=== PATIENT | female | born 1945 | race Caucasian/White ===

== ENCOUNTER → 2017-09-26 | Outpatient (REF) | payer MEDICARE, OTHER ==
[~2017-09-26] MED LIST: ALP1 PO; AMLO-109 PO; AUG875 PO; DEN60I SUBQ; DILT240C76 PO; ESCI5TAB10 PO; LEV100 PO; LEVO50 PO; MEC25 PO; MELO-149 PO; ONDA4TAB PO; RIS35 PO; VANC125C10 PO; [UNRECOGNIZED DRUG - CODE] PO; bp meds
== END ==
LOC: ZZSENDIN 18:12
PROVIDERS: ATTEND Family Medicine
DX: M79.1 Myalgia (principal)
CPT/HCPCS: 82550

== ENCOUNTER → 2017-10-03 | Outpatient (REF) | payer MEDICARE, OTHER | LOC: ZZSENDIN 17:08 | PROVIDERS: ATTEND Family Medicine | DX: M79.671 Pain in right foot (principal) | CPT/HCPCS: 84550 ==

== ENCOUNTER → 2017-10-15 | Outpatient (CLI) | payer MEDICARE, OTHER ==
[2017-10-15 11:29] LABS: PLATELET COUNT, AUTOMATED 309 K/uL (150-450)
--- NOTE | 2017-10-15 12:17 | RADIOLOGY IMAGING REPORT ---
FACILITY: [facility] PATIENT NAME: Sara Thomas : 1945 MR: [id number] V: [id number] EXAM DATE: ORDERING PHYSICIAN: MORGAN CHRISTINE TECHNOLOGIST: [place] [facility] [place]: Sara [place] : 1945 Visit/Account:[id number] Date of Sevice: 10/15/2017 FOOT 3 VIEW RIGHT Indication: Dorsal right foot pain after fall Comparison: None Available Findings: 3 views of the right foot were obtained. Mild degenerative change at the first MCP joint. Mild degenerative changes seen at the interphalange al joints without fracture or erosive articular change. Dorsal degenerative changes seen at the hind and midfoot on the lateral view without acute bony finding. Mild soft tissue swelling. IMPRESSION: 1.Degenerative changes as above. Mild soft tissue swelling dorsally in the mid foot without evidence of acute osseous finding. Report Dictated By: Wilder Rivas MD at 10/15/2017 12:11 PM Report E-Signed By: Wilder Rivas MD at 10/15/2017 12:13 PM WSN:[id number]
== END ==
LOC: LAB 10:42
PROVIDERS: ATTEND Nurse Practitioner Primary Care
DX: M19.071 Primary osteoarthritis, right ankle and foot (principal); M79.9 Soft tissue disorder, unspecified; A04.72 Enterocolitis due to Clostridium difficile, not specified as recurrent; R19.5 Other fecal abnormalities
CPT/HCPCS: 36415; 81001; 82040; 82150; 82247; 82274; 82310; 82374; 82435; 82565; 82947; 83630; 83690; 84075; 84132; 84155; 84295; 84450; 84460; 84520; 84550; 85025; 87045; 87324; 87449

== ENCOUNTER → 2017-10-18 | Outpatient (CLI) | payer MEDICARE, OTHER | LOC: LAB 09:33 | PROVIDERS: ATTEND Nurse Practitioner Primary Care | DX: R19.7 Diarrhea, unspecified (principal); R10.84 Generalized abdominal pain; R11.0 Nausea | CPT/HCPCS: 36415; 82040; 82247; 82310; 82374; 82435; 82565; 82947; 84075; 84132; 84155; 84295; 84450; 84460; 84520 ==

== ENCOUNTER → 2017-10-25 | Outpatient (CLI) | payer MEDICARE, OTHER ==
--- NOTE | 2017-10-25 12:03 | RADIOLOGY IMAGING REPORT ---
[place] [facility] [place]: [place] : 1945 MR: [id number] V: [id number] EXAM DATE: ORDERING PHYSICIAN: MORGAN CHRISTINE TECHNOLOGIST: Location: [facility] - [place] Patient: Sara Thomas : 1945 Visit/Account:[id number] Date of Sevice: 10/25/2017 MRI right foot Indication: Foot pain Comparison: Plain films 10/15/2012 are reviewed. Technique: Sagittal STIR, coronal long axis T1-weighted and T2-weighted fat saturated, short axis axi al T2-weighted fat-saturated images were obtained through the right foot. Findings: The gaako-[id number] is centered on the midfoot. There is moderate to severe midfoot osteoarthritis iden tified which was also seen on the plain film examination. This involves the navicular cuneiform joint s as well as the tarsometatarsal joints. There is associated osteophyte production with subchondral e luis and subchondral cyst formation. These changes are most severe at the second and third tarsometat arsal joints. Calcaneocuboid joint osteoarthritis is seen with a joint effusion mildly distending the joint capsule laterally. No midfoot fracture line is seen. There is overlying subcutaneous edema. With respect to the hindfoot, there is some focal edema seen within the talus along the middle subtal ar joint and the sinus Tarsi. This is not specific and could be stress related or degenerative. No fr acture line. Visualized portions of the calcaneus as well as the distal tibia and fibula appear unrem arkable. With respect to the visualized forefoot, no metatarsal fracture or stress reaction. There are changes of forefoot osteoarthritis involving the metatarsophalangeal joints. This is most pronounced at the first metatarsophalangeal joint. Intrinsic musculature of the foot appears normal in signal. IMPRESSION: 1. Extensive right midfoot osteoarthritis most pronounced at the second and third tarsometatarsal rosemary nts with subchondral edema and cyst formation. There is overlying subcutaneous edema. 2. Forefoot osteoarthritis most pronounced at the first metatarsophalangeal joint. 3. Nonspecific edema within the medial margin of the talus along the middle subtalar joint and the si nus Tarsi. This could be stress related in the appropriate setting. Report Dictated By: John Lamb at 10/25/2017 11:48 AM Report E-Signed By: John Labm at 10/25/2017 11:59 AM WSN:[id number]
== END ==
LOC: MRI 03:00
PROVIDERS: ATTEND Nurse Practitioner Primary Care
DX: M19.071 Primary osteoarthritis, right ankle and foot (principal); R60.0 Localized edema
CPT/HCPCS: 73718

== ENCOUNTER → 2018-01-15 | Outpatient (CLI) | payer MEDICARE, OTHER ==
[~2018-01-15] MED LIST changes: +ACET-1966 PO; +ALPR-448 PO; +BUDE3CAP6 PO; +CALC-28 PO; +DILT240C2 PO; +DIPH-464 PO; +LACT1CAP6 PO; +MIRT-22 PO; +NITR-105 PO; +ONDA8TAB94 PO; +SIMV10TA96 PO
[2018-01-15 15:16] LABS: PLATELET COUNT, AUTOMATED 236 K/uL (150-450)
== END ==
LOC: LAB 14:59
PROVIDERS: ATTEND Nurse Practitioner Primary Care
DX: R11.2 Nausea with vomiting, unspecified (principal)
CPT/HCPCS: 36415; 81001; 82040; 82247; 82310; 82374; 82435; 82565; 82947; 84075; 84132; 84155; 84295; 84450; 84460; 84520; 85025

== ENCOUNTER 2018-01-16 11:46 | Emergency (ER) | payer MEDICARE, OTHER ==
[~2018-01-16 11:46] MED LIST changes: -NITR-105 PO
--- NOTE | 2018-01-16 11:57 | ER Report ---
History and Physical Time Seen By MD: 11:57 Hx. of Stated Complaint: PT REPORTS FLU LIKE SYMPTOMS 4 DAYS, DEHYDRATED -CT SCAN 3PM TODAY HPI/ROS CHIEF COMPLAINT: Abdominal pain, dehydration HISTORY OF PRESENT ILLNESS: 72-year-old female patient presents to emergency room with complaint of abdominal pain, dehydration. Patient states she is not been feeling well for the past several days. She states she's been having some lower abdominal pain and has been having significant chills. She states that she 's not had much of an appetite, eating only once today, and has not had much of a taste for water. She states that he has not checked her temperature, stating that she is just felt feverish and chilled. She also states that she has taken some Tylenol for this with no improvement. She did see her primary care provider yesterday, who ordered some lab work, urinalysis and a CT scan of the abdomen and pelvis today. The family did want her evaluated here in the emergency room as well as rehydrated prior to getting CT scan. REVIEW OF SYSTEMS: Respiratory: No cough, no dyspnea. Cardiovascular: No chest pain, no palpitations. Gastrointestinal: As noted above Musculoskeletal: No back pain. Allergies: Coded Allergies: codeine (Verified Allergy, Mild, 09/17/17) Sulfa (Sulfonamide Antibiotics) (Verified Allergy, Unknown, 09/17/17) Home Meds Active Scripts Nitrofurantoin Monohyd/M-Cryst (MACROBID 100 MG CAPSULE) 100 Mg Capsule, 100 MG PO BID, #14 CAPSULE Prov:APRIL GREGORY POWDER BLENDER AND POURER 01/16/18 Diltiazem Hcl (DILTIAZEM ER) 240 Mg Capsule.er, 1 CAP PO DAILY, #90 CAP 4 Refills Prov:OMER YANCEY MD 12/25/17 Reported Medications Lactobacillus Combination No.4 (PROBIOTIC) 1 Each Capsule, 1 CAP PO DAILY, CAPSULE 12/06/17 Calcium Phosphate Trib/Vit D3 (Citracal + D3 Gummies) 1 Each Tab.chew, 1 TAB.CHEW PO DAILY 12/06/17 Acetaminophen (TYLENOL) Unknown Strength Tablet, 650-1300 MG PO PRN, TAB 12/06/17 Simvastatin (ZOCOR) 10 Mg Tablet, 1 TAB PO HS, TAB 12/06/17 Budesonide (BUDESONIDE EC) 3 Mg Capdr...er, 2 CAP PO DAILY Tapering off 3/16/18 Denosumab (PROLIA) 60 Mg/1 Ml Injs, 60 MG SUBQ q6mo 09/17/17 Meclizine Hcl (Antivert) 25 Mg Tab, 1 TAB PO PRN Y for DIZZINESS 10/26/12 Levothyroxine Sodium (SYNTHROID/LEVOTHROID (OR EQUIV)) 0.05 Mg Tab, 1 TAB PO DAILY 10/26/12 Meloxicam (Mobic) 7.5 Mg Tablet, 1 TAB PO BID Y for PRN, 0 Refills 10/25/12 Escitalopram Oxalate (Lexapro) 5 Mg Tablet, 1 TAB PO QDAY 10/25/12 Discontinued Reported Medications Diphenhydramine Hcl (DIPHENHYDRAMINE HCL) 25 Mg Capsule, 1 CAP PO BID, CAPSULE 12/06/17 Alprazolam 0.5 Mg Tab (ALPRAZOLAM 0.5 MG TAB) 0.5 Mg Tablet, 1 TAB PO HS Y for SLEEP, TAB 12/06/17 Discontinued Scripts Ondansetron (ZOFRAN ODT) 8 Mg Tab.rapdis, 1 TAB PO Q12H Y for NAUSEA/VOMITING, # 8 TAB 0 Refills Prov:MORGAN CHRISTINE DNP, P[employer] BL[employer]ER [employer] POURER-BC 01/15/18 Mirtazapine (MIRTAZAPINE) 15 Mg Tablet, 0.5 TAB PO QHS for 90 Days, #45 TAB Prov:OMER YANCEY MD 12/06/17 Past Medical/Surgical History Patient has a past medical history of hypertension, nausea, vomiting and diarrhea, anxiety. Patient has surgical history of hysterectomy, thyroidectomy. Reviewed Nurses Notes: Yes Hx Smoking: Yes Smoking Status: Former Smoker Hx Substance Use Disorder: No Hx Alcohol Use: No Constitutional Vital Sign - Last 24 Hours 01/16/18 01/16/18 01/16/18 01/16/18 11:52 11:53 12:01 12:16 Temp 97.5 Pulse 82 77 81 Resp 14 B/P (MAP) 122/60 (80) 122/60 Pulse Ox 97 96 97 O2 Delivery Room Air 01/16/18 01/16/18 01/16/18 01/16/18 12:31 12:40 12:46 12:51 Temp 97.5 Pulse 75 74 71 Resp 14 10 14 Pulse Ox 93 95 95 01/16/18 01/16/18 01/16/18 01/16/18 12:56 13:01 13:06 13:11 Pulse ? 71 Resp 11 Pulse Ox 95 01/16/18 01/16/18 01/16/18 01/16/18 13:16 13:18 13:21 13:26 Pulse 69 67 69 Resp 16 15 B/P (MAP) 115/53 (73) Pulse Ox 97 97 01/16/18 01/16/18 01/16/18 01/16/18 13:27 13:30 13:31 13:36 Pulse 73 68 Resp 30 12 B/P (MAP) 118/60 (79) 122/70 (87) Pulse Ox 95 97 01/16/18 01/16/18 01/16/18 01/16/18 13:41 13:46 13:51 13:56 Pulse 71 68 70 72 Resp 10 13 11 11 Pulse Ox 94 94 93 95 01/16/18 01/16/18 01/16/18 14:00 14:01 14:06 Pulse ??? 69 Resp 16 12 B/P (MAP) 116/69 (85) Pulse Ox 100 Intake and Output 01/16/18 01/16/18 01/17/18 15:00 23:00 07:00 Intake Total 1100 ml Balance 1100 ml Physical Exam General Appearance: The patient is alert, has no immediate need for airway protection and no current signs of toxicity. Respiratory: Chest is non tender, lungs are clear to auscultation. Cardiac: regular rate and rhythm Gastrointestinal: Abdomen is soft and tender throughout, no masses, bowel sounds normal. Musculoskeletal: Neck: Neck is supple and non tender. Extremities have full range of motion and are non tender. Skin: No rashes or lesions. Patient is slightly diaphoretic to touch. DIFFERENTIAL DIAGNOSIS: After history and physical exam differential diagnosis was considered for abdominal pain including but not limited to appendicitis, cholecystitis, gastritis and urinary tract infection. Medical Decision Making Data Points Result Diagram: 01/16/18 1216 01/16/18 1216 Laboratory Hematology Test 01/16/18 12:16 Red Blood Count 4.32 M/uL (4.17-5.56) Mean Corpuscular Volume 82.9 fL (80.0-96.0) Mean Corpuscular Hemoglobin 28.7 pg (26.0-33.0) Mean Corpuscular Hemoglobin Concent 34.6 g/dL (32.0-36.0) Red Cell Distribution Width 14.2 % (11.5-14.5) Mean Platelet Volume 8.6 fL (7.2-11.1) Neutrophils (%) (Auto) 82.3 % (39.4-72.5) Lymphocytes (%) (Auto) 8.1 % (17.6-49.6) Monocytes (%) (Auto) 9.2 % (4.1-12.4) Eosinophils (%) (Auto) 0.1 % (0.4-6.7) Basophils (%) (Auto) 0.3 % (0.3-1.4) Nucleated RBC Relative Count (auto) 0.0 /100WBC Neutrophils # (Auto) 11.1 K/uL (2.0-7.4) Lymphocytes # (Auto) 1.1 K/uL (1.3-3.6) Monocytes # (Auto) 1.2 K/uL (0.3-1.0) Eosinophils # (Auto) 0.0 K/uL (0.0-0.5) Basophils # (Auto) 0.0 K/uL (0.0-0.1) Nucleated RBC Absolute Count (auto) 0.00 K/uL Sodium Level 128 mmol/L (137-145) Potassium Level 3.1 mmol/L (3.5-5.0) Chloride Level 94 mmol/L (98-107) Carbon Dioxide Level 22 mmol/L (22-31) Blood Urea Nitrogen 13 mg/dl (7-18) Creatinine 1.10 mg/dl (0.52-1.04) Glomerular Filtration Rate Calc 48.8 Random Glucose 148 mg/dl (75-110) Calcium Level 9.0 mg/dl (8.4-10.2) Total Bilirubin 0.3 mg/dl (0.2-1.3) Aspartate Amino Transf (AST/SGOT) 18 U/L (0-35) Alanine Aminotransferase (ALT/SGPT) 25 U/L (0-56) Alkaline Phosphatase 59 U/L (0-126) C-Reactive Protein 36.4 mg/dl (<1.0) Total Protein 6.8 gm/dl (6.3-8.2) Albumin 3.5 g/dl (3.5-5.0) Amylase Level 41 U/L (0-110) Lipase 35 U/L (23-300) Chemistry Test 01/16/18 12:16 White Blood Count 13.5 k/uL (4.5-11.0) Red Blood Count 4.32 M/uL (4.17-5.56) Hemoglobin 12.4 g/dL (12.0-16.0) Hematocrit 35.8 % (34.0-47.0) Mean Corpuscular Volume 82.9 fL (80.0-96.0) Mean Corpuscular Hemoglobin 28.7 pg (26.0-33.0) Mean Corpuscular Hemoglobin Concent 34.6 g/dL (32.0-36.0) Red Cell Distribution Width 14.2 % (11.5-14.5) Platelet Count 217 K/uL (150-450) Mean Platelet Volume 8.6 fL (7.2-11.1) Neutrophils (%) (Auto) 82.3 % (39.4-72.5) Lymphocytes (%) (Auto) 8.1 % (17.6-49.6) Monocytes (%) (Auto) 9.2 % (4.1-12.4) Eosinophils (%) (Auto) 0.1 % (0.4-6.7) Basophils (%) (Auto) 0.3 % (0.3-1.4) Nucleated RBC Relative Count (auto) 0.0 /100WBC Neutrophils # (Auto) 11.1 K/uL (2.0-7.4) Lymphocytes # (Auto) 1.1 K/uL (1.3-3.6) Monocytes # (Auto) 1.2 K/uL (0.3-1.0) Eosinophils # (Auto) 0.0 K/uL (0.0-0.5) Basophils # (Auto) 0.0 K/uL (0.0-0.1) Nucleated RBC Absolute Count (auto) 0.00 K/uL Glomerular Filtration Rate Calc 48.8 Calcium Level 9.0 mg/dl (8.4-10.2) Total Bilirubin 0.3 mg/dl (0.2-1.3) Aspartate Amino Transf (AST/SGOT) 18 U/L (0-35) Alanine Aminotransferase (ALT/SGPT) 25 U/L (0-56) Alkaline Phosphatase 59 U/L (0-126) C-Reactive Protein 36.4 mg/dl (<1.0) Total Protein 6.8 gm/dl (6.3-8.2) Albumin 3.5 g/dl (3.5-5.0) Amylase Level 41 U/L (0-110) Lipase 35 U/L (23-300) EKG/Imaging Imaging COMPUTED TOMOGRAPHY OF THE Abdomen and Pelvis with CONTRAST INDICATION: Abdominal pain. TECHNIQUE: Contiguous axial 3.[address] images were obtained through the abdomen and pelvis with 75 cc Isovue (type of Isovue not specified). Coronal and sagittal reformatted images were submitted. COMPARISON: None. FINDINGS: Lung bases: Mild atelectasis at the lung bases. Liver and hepatic vasculature: Focal fatty infiltration adjacent to the falciform. Smooth liver surface. No ascites. Tiny cyst posteriorly in the right lobe. Gallbladder and bile ducts: Normal Spleen: Normal Pancreas: Normal Adrenals: Normal Kidneys, ureters and bladder: The right ureter is mildly dilated, but there are no stones. The left ureter is also mildly dilated. The calcifications in the left lower pelvis are likely phleboliths. Circumferential bladder wall thickening is suggested. Retroperitoneum and aorta: Scattered aortic atherosclerosis. No aneurysm. GI tract, mesentery and peritoneum: No bowel obstruction. No free fluid or free air. No findings for diverticulitis. Uterus and adnexa: Surgically absent uterus. Bones and soft tissues: Degenerative findings in the lumbar spine but no acute osseous abnormality. IMPRESSION: 1. Suggestion of mild circumferential bladder wall thickening may be from incomplete distention but correlate with urinalysis. 2. Otherwise, no clear evidence of acute intra-abdominal abnormality. One of the following dose optimization techniques was utilized in the performance of this exam: Automated exposure control; adjustment of the mA and/ or kV according to the patient's size; or use of an iterative reconstruction technique. Specific details can be referenced in the facility's radiology CT exam operational policy. Report Dictated By: Alina Pittman MD at 01/16/2018 1:24 PM Report E-Signed By: Alina Pittman MD at 01/16/2018 1:42 PM ED Course/Re-evaluation ED Course Patient was admitted in exam room, history and physical were obtained. Differential diagnoses were considered. On examination patient had mild tenderness to the abdomen. A CBC, CMP were done. A urinalysis had been obtained previously by her primary care provider which showed leukocyte esterase with 72 white blood cells per high-power field. A CT scan of the abdomen and pelvis was also done. Patient had an elevated white count of 13,[address] scan of abdomen and pelvis showed no acute findings in the abdomen, other than the patient had mild bladder wall thickening. I believe is likely secondary to her urinary tract infection. I discussed the findings with the patient. Discussed placing her on antibiotics. She states that she would prefer not to be on antibiotics as she has had a history of C. difficile. We will go ahead and culture the urine which was obtained previously and we will also place her on Macrobid. The goal is that she will have no GI symptoms with a bacteriostatic antibiotic. I discussed this with patient who verbalized understanding and agreement with plan. She is return the emergency room she is any worsening of her condition. Decision to Disposition Date: Jan 16, 2018 Decision to Disposition Time: 13:59 Depart Departure Latest Vital Signs Vital Signs Date Time Temp Pulse Resp B/P (MAP) Pulse Ox O2 Delivery O2 Flow Rate FiO2 01/16/18 14:06 69 12 01/16/18 14:01 100 01/16/18 14:00 116/69 (85) 01/16/18 12:40 97.5 01/16/18 11:53 Room Air Impression: Primary Impression: UTI (urinary tract infection) Condition: Improved Disposition: HOME OR SELF-CARE Referrals: OMER YANCEY MD (PCP) New Scripts Nitrofurantoin Monohyd/M-Cryst (MACROBID 100 MG CAPSULE) 100 Mg Capsule 100 MG PO BID, #14 CAPSULE Prov: APRIL GREGORY EUGENIO 01/16/18 Patient Instructions: Urinary Tract Infection in Women (ED) Additional Instructions: Increase fluid intake. Get plenty of rest. Follow up with Morgan Christine early next week. We are culturing the urine and will call if we need to change antibiotics. Due to your history of C-diff we will place you on Macrobid, which holds the bacteria at a steady state and allows your body to catch up with it. Return to the ER if condition worsens. Take Tylenol or Ibuprofen as needed for fevers or pain. Problem Qualifiers Primary Impression: UTI (urinary tract infection) Urinary tract infection type: acute cystitis Hematuria presence: without hematuria Qualified Codes: N30.00 - Acute cystitis without hematuria APRIL GREGORY Jan 16, 2018 11:57
[2018-01-16] MEDS ORDERED: ACETAMINOPHEN(*)1000 MG/100 ML 100 ML IVPB ONE (12:05)
[2018-01-16] MEDS ORDERED: NS(*) 0.9% 1000 ML BAG 1,000 ML IV ONE (12:05)
[2018-01-16 12:25] LABS: PLATELET COUNT, AUTOMATED 217 K/uL (150-450)
[2018-01-16] MEDS ORDERED: IOPAMIDOL 76% 75 ML INFUS BTL 75 ML ONE (12:28)
--- NOTE | 2018-01-16 13:46 | RADIOLOGY IMAGING REPORT ---
FACILITY: [facility] PATIENT NAME: Sara Thomas : 1945 MR: [id number] V: [id number] EXAM DATE: ORDERING PHYSICIAN: APRIL GREGORY TECHNOLOGIST: Location: [facility] Patient: Sara Thomas : 1945 Visit/Account:[id number] Date of Sevice: 01/16/2018 COMPUTED TOMOGRAPHY OF THE Abdomen and Pelvis with CONTRAST INDICATION: Abdominal pain. TECHNIQUE: Contiguous axial 3.[address] images were obtained through the abdomen and pelvis with 75 cc Isovue (type of Isovue not specified). Coronal and sagittal reformatted images were submitted. COMPARISON: None. FINDINGS: Lung bases: Mild atelectasis at the lung bases. Liver and hepatic vasculature: Focal fatty infiltration adjacent to the falciform. Smooth liver surf louann. No ascites. Tiny cyst posteriorly in the right lobe. Gallbladder and bile ducts: Normal Spleen: Normal Pancreas: Normal Adrenals: Normal Kidneys, ureters and bladder: The right ureter is mildly dilated, but there are no stones. The left ureter is also mildly dilated. The calcifications in the left lower pelvis are likely phleboliths. Ci rcumferential bladder wall thickening is suggested. Retroperitoneum and aorta: Scattered aortic atherosclerosis. No aneurysm. GI tract, mesentery and peritoneum: No bowel obstruction. No free fluid or free air. No findings for diverticulitis. Uterus and adnexa: Surgically absent uterus. Bones and soft tissues: Degenerative findings in the lumbar spine but no acute osseous abnormality. IMPRESSION: 1. Suggestion of mild circumferential bladder wall thickening may be from incomplete distention but c orrelate with urinalysis. 2. Otherwise, no clear evidence of acute intra-abdominal abnormality. One of the following dose optimization techniques was utilized in the performance of this exam: Autom ated exposure control; adjustment of the mA and/or kV according to the patient's size; or use of an i terative reconstruction technique. Specific details can be referenced in the facility's radiology C T exam operational policy. Report Dictated By: Alina Pittman MD at 01/16/2018 1:24 PM Report E-Signed By: Alina Pittman MD at 01/16/2018 1:42 PM [id number]
[2018-01-16 14:00] VITALS: BP 116/69
[2018-01-16] MEDS ORDERED: NITR-105 PO (14:01)
[2018-01-20] MEDS ORDERED: TRAZ-156 PO (09:04)
== END 2018-01-16 14:20 | disposition home or self-care (01) ==
LOC: ER 11:55
DX: N30.00 Acute cystitis without hematuria (principal)
CPT/HCPCS: 74177; 82150; 83690; 85025; 86140; 87077; 87088; 87186; 96361; 96365; 99283; J0131; J7030; Q9967; 82040; 82247; 82310; 82374; 82435; 82565; 82947; 84075; 84132; 84155; 84295; 84450; 84460; 84520

== ENCOUNTER → 2018-02-10 | Outpatient (CLI) | payer MEDICARE, OTHER ==
[~2018-02-10] MED LIST changes: +LEVO50TA86 PO; +NITR-105 PO; +TRAZ-156 PO
== END ==
LOC: LAB 15:56
PROVIDERS: ATTEND Family Medicine
DX: E87.1 Hypo-osmolality and hyponatremia (principal)
CPT/HCPCS: 36415; 82040; 82247; 82310; 82374; 82435; 82565; 82947; 84075; 84132; 84155; 84295; 84450; 84460; 84520

== ENCOUNTER → 2018-08-13 | Outpatient (CLI) | payer MEDICARE, OTHER ==
[~2018-08-13] MED LIST changes: +DENOSUMAB 60 MG/1 ML SYR SUBQ ONE; -TRAZ-156 PO; +TRAZ50TA34 PO
== END ==
LOC: SPU 10:49
PROVIDERS: ATTEND Family Medicine
DX: M81.0 Age-related osteoporosis without current pathological fracture (principal)
CPT/HCPCS: 96372; J0897

== ENCOUNTER → 2019-02-10 | Outpatient (CLI) | payer MEDICARE, OTHER ==
[~2019-02-10] MED LIST changes: -DENOSUMAB 60 MG/1 ML SYR SUBQ ONE
== END ==
LOC: SPU 08:55
PROVIDERS: ATTEND Family Medicine
DX: M81.0 Age-related osteoporosis without current pathological fracture (principal)